=== PATIENT | female | born 1945 | race African-American/Black ===

== ENCOUNTER → 2016-07-24 | Day surgery (SDC) | payer OTHER ==
--- NOTE | 2016-07-23 19:00 | MH ---
cc: CONCEPCIÓN CLEMENT DATE OF ADMISSION: 07/24/2016 ADMITTING DIAGNOSIS: HISTORY OF PRESENT ILLNESS: The patient is a 70 year-old female with chronic otitis media for bilateral myringotomy and tube placement. PAST MEDICAL HISTORY Unremarkable other than rheumatoid arthritis. PAST SURGICAL HISTORY: Notable for previous tubes and nasal surgery. MEDICATIONS: Methotrexate. REVIEW OF SYSTEMS, FAMILY HISTORY AND SOCIAL HISTORY Unremarkable PHYSICAL EXAMINATION Well-appearing patient, no acute distress noted. HEENT: Exam reveals significant fluid behind each eardrum with a retained tube in the external canal on the right side. Nose is clear. Oral cavity and neck are clear. Lungs: Clear. Heart: Regular rate and rhythm. Abdomen: Soft and nontender. Extremities: Without cyanosis, clubbing or edema. Neurologically, nonfocal, alert, oriented x3 IMPRESSION Patient with chronic otitis media for bilateral myringotomy and tube placement. PLAN: The patient was instructed as to the method of surgery and possible complication which include anesthetic complications cardiac difficulty, pulmonary difficulty, stroke, coma or even . Surgical complications of bleeding, infection, early or late extrusion of tube, tympanic membrane perforation, conductive or sensorineural hearing loss. The patient appeared to agree, accept and understand the above-mentioned risks and benefits. Will therefore proceed with surgery. Concepción Clement MD [facility] /6:16 PM /6:54 PM
[~2016-07-24] VITALS: Ht 157.5 cm; Wt 79.2 kg
[~2016-07-24] MED LIST: ACETAMINOPHEN/HYDROcodone 325 MG/7.5 MG TAB PO PRN; AMLO5TAB2 PO; DO NOT ADM ANY ANTICOAGULANT DRUGS XX PRN; EPINEPHrine HCL (1:1000) 30 MG/30 ML VIAL ONE; FERR1TAB36 PO; INSULIN HUMAN REGULAR 1,000 UNITS/10 ML VIAL SQ PRN; LACTATED RINGER'S 1000 ML IV SCH; LIDOCAINE 1%/EPINEPHrine 1:100,000 SOLN 30 ML VIAL ONE; METF1000 PO; METOPROLOL TARTRATE 25 MG TAB PO PRN; MORPHINE SULFATE 4 MG/ML INJ IV PUSH PRN; OFLOXACIN 0.3% OPTH SOLN 5 ML BTL EACH EAR ONE; OFLOXACIN 0.3% OPTH SOLN 5 ML BTL ONE; ONDANSETRON HCL 4 MG/2 ML VIAL IV PUSH ONE; ONDANSETRON HCL 4 MG/2 ML VIAL IV PUSH PRN; PHENYLEPH/NS 1000 MCG/10 ML SYR IV ONE; PRAV10TA PO; PROB500T8 PO; PROPOFOL 200 MG/20 ML AMP IV ONE; SODIUM CHLORID 0.9% 500 ML IV SCH
[2016-07-24 08:06] VITALS: BP 122/72; PULSE 90; RESP 20; TEMP 98.5; O2SAT 96
[2016-07-24 12:40] VITALS: BP 133/83; PULSE 74; RESP 18; TEMP 97.7; O2SAT 99
--- NOTE | 2016-07-24 19:03 | EKG ---
Date Performed: 07/24/2016 Time Performed: 08:11:25 PTAGE: 70 years EKG: Sinus rhythm INDETERMINATE AXIS RIGHT BUNDLE BRANCH BLOCK MODERATE T-WAVE ABNORMALITY, CONSIDER LATERAL ISCHEMIA ABNORMAL ECG PREVIOUS TRACING : 02/25/2012 11.50 Compared to the previous tracing, lateral T wave changes a re new DOCTOR: John Johnson Interpretating Date/Time 07/24/2016 19:01:08
--- NOTE | 2016-07-25 10:44 | MP ---
cc: CONCEPCIÓN CLEMENT DATE OF SURGERY: 07/24/2016 PREOPERATIVE DIAGNOSIS Chronic otitis media. POSTOPERATIVE DIAGNOSIS Chronic otitis media. PROCEDURE Bilateral myringotomy and tube placement. OPERATING SURGEON Dr. Clement ANESTHESIA General. ESTIMATED BLOOD LOSS Minimal. COMPLICATIONS No complications. OPERATION Under microscopic visualization anterior inferior radial myringotomy incision made left side. Fluid suctioned from middle ear cavity. Tympanostomy tube placed in good position along with ofloxacin. In a similar fashion on the opposite side anterior inferior radial myringotomy incision made, fluid suctioned from middle ear cavity, tympanostomy tube placed in good position along with ofloxacin. Patient tolerated procedure well. MD RAUL Paige/ROSA MARIA /7:46 AM /10:32 AM
== END | disposition home or self-care (01) ==
LOC: HSDC 06:59
PROVIDERS: ATTEND Specialist
DX: H66.93 Otitis media, unspecified, bilateral (principal); M06.9 Rheumatoid arthritis, unspecified; R94.31 Abnormal electrocardiogram [ECG] [EKG]
CPT/HCPCS: 00126; 69436; 93005; J2370; J2405; J3010; J0171

== ENCOUNTER 2018-03-31 09:43 | Observation (INO) ==
[2018-03-31 10:40] LABS: Baso % (Auto) 0.3 % (0.0-2.0); Eos # (Auto) 0.1 th/mm3 (0.0-0.4); Eos % (Auto) 0.5 % (0.0-4.0); Hematocrit 38.5 % (35.0-46.0); Hemoglobin 12.5 gm/dL (11.6-15.3); Lymph # (Auto) 1.8 th/mm3 (1.0-4.8); Lymph % (Auto) 9.9 % (9.0-44.0); Mean Corpuscular HGB Conc 32.4 % (32.0-36.0); Mean Corpuscular Hemoglobin 26.2 pg (27.0-34.0); Mean Corpuscular Volume 80.7 fL (80.0-100.0); Mean Platelet Volume 7.4 fL (7.0-11.0); Mono # (Auto) 1.6 th/mm3 (0.0-0.9); Mono % (Auto) 8.8 % (0.0-8.0); Neut # (Auto) 14.4 th/mm3 (1.8-7.7); Neut % (Auto) 80.5 % (16.0-70.0); Platelet Count 367 th/mm3 (150-450); Red Blood Count 4.77 mil/mm3 (4.00-5.30); Red Cell Distribution Width 18.5 % (11.6-17.2); White Blood Count 17.9 th/mm3 (4.0-11.0)
[2018-03-31 10:55] LABS: Albumin 2.9 g/dL (3.4-5.0); Anion Gap 12 meq/L (5-15); Aspartate Aminotransferase 83 U/L (15-37); Blood Urea Nitrogen 18 mg/dL (7-18); Calcium 8.3 mg/dL (8.5-10.1); Carbon Dioxide 25.8 meq/L (21.0-32.0); Chloride 103 meq/L (98-107); Glomerular Filtration Rate 28 mL/min (>89); Glucose,Random 168 mg/dL (74-106); Potassium 3.5 meq/L (3.5-5.1); Sodium 141 meq/L (136-145)
[2018-03-31 10:56] LABS: Alanine Aminotransferase 50 U/L (10-53)
[2018-03-31 10:58] LABS: Alkaline Phosphatase 146 U/L (45-117); Total Protein 7.2 g/dL (6.4-8.2)
--- NOTE | 2018-03-31 11:18 | CT ---
EXAM DATE: 03/31/2018 11:12 AM EDT AGE/SEX: 72 years / Female INDICATIONS: Right ear infection, facial swelling after antibiotics started CLINICAL DATA: This is the patient's initial encounter. Patient reports that signs and symptoms have been present for 1 day and indicates a pain score of 3/10. MEDICAL/SURGICAL HISTORY: Diabetes. None. RADIATION DOSE: 56.35 CTDI (mGy) COMPARISON: [facility] [place], CT SINUSES W/O CONTRAST, 02/18/2012. . TECHNIQUE: CT of the head without contrast. Using automated exposure control and adjustment of the mA and/or kV according to patient size, radiation dose was kept as low as reasonably achievable to ob tain optimal diagnostic quality images. DICOM format image data is available electronically for revi ew and comparison. FINDINGS: Cerebrum: The ventricles are normal for age with mild to moderate atrophic change with sulcal and ve ntricular prominence. Periventricular white matter lucencies are noted consistent with chronic small vessel ischemic change. No evidence of midline shift, mass lesion, hemorrhage or acute infarction. N o extraaxial fluid collections are seen. Posterior Fossa: The cerebellum and brainstem are intact. The 4th ventricle is midline. The cerebe llopontine angle is unremarkable. Extracranial: The visualized portion of the orbits is intact. The paranasal sinuses are nearly compl etely opacified with only minimal aeration in the right maxillary sinus. The mastoid air cells are co mpletely opacified bilaterally. Skull: The calvaria is intact. No evidence of skull fracture. CONCLUSION: 1. Complete opacification of the mastoid air cells bilaterally. 2. Near complete opacification of the paranasal sinuses bilaterally. 3. No evidence of hemorrhage or mass effect. 4. Atrophy and chronic small vessel ischemic change. . Electronically signed by: Justin Benitez MD 03/31/2018 11:17 AM EDT
[2018-03-31] MEDS ORDERED: Famotidine PF Inj 20 MG/2 ML Vial IV.PUSH ONE (11:39)
[2018-03-31] MEDS ORDERED: Vancomycin Inj 1 GM/200 ML PIGGYBACK IV.SIG ONE (11:39)
[2018-03-31] MEDS ORDERED: MethylPREDNISolone Sod Succinate Inj 125 MG/2 ML Vial IV.PUSH ONE (11:39)
[2018-03-31] MEDS ORDERED: Vancomycin Inj 1,000 MG in Sodium Chlor 0.9% Inj 250 ML IV.SIG ONE (12:00)
--- NOTE | 2018-03-31 12:10 | XR ---
EXAM DATE: 03/31/2018 12:03 PM EDT AGE/SEX: 72 years / Female INDICATIONS: Right knee pain after fall. CLINICAL DATA: This is the patient's initial encounter. Patient reports that signs and symptoms have been present for 2 days and indicates a pain score of 9/10. MEDICAL/SURGICAL HISTORY: None. None. COMPARISON: [facility], XR KNEE COMPLETE, RIGHT, 11/30/2017. . FINDINGS: There are degenerative changes patellofemoral compartment. There is minimal articular cartilage calci fication present in the medial compartment as well as the lateral compartment. Alignment anatomic. Fractures are appreciated. CONCLUSION: Degenerative changes, negative for fracture or pathological joint effusion. Electronically signed by: Ben Eddy MD 03/31/2018 12:08 PM EDT
--- NOTE | 2018-03-31 12:11 | XR ---
EXAM DATE: 03/31/2018 12:02 PM EDT AGE/SEX: 72 years / Female INDICATIONS: Left hip pain after fall. CLINICAL DATA: This is the patient's initial encounter. Patient reports that signs and symptoms have been present for 2 days and indicates a pain score of 10/10. MEDICAL/SURGICAL HISTORY: None. None. COMPARISON: No prior exams available for comparison. FINDINGS: Bony structures are intact and in normal alignment. Joints are intact without dislocation or signifi cant arthropathy. Osseous density is normal. Soft tissues are unremarkable. No radiopaque foreign bodies seen. CONCLUSION: Limited exam, negative Electronically signed by: Ben Eddy MD 03/31/2018 12:10 PM EDT
[2018-03-31] MEDS ORDERED: Acetaminophen 325 MG Tablet PO PRN (12:15)
--- NOTE | 2018-03-31 12:17 | ED ---
HPI General Chief complaint: Ear Stated complaint: possible allergic reaction Time Seen by Provider: 03/31/18 10:20 History of Present Illness HPI Narrative: Patient reportedly has a positive urine culture that grew out MRSA about 1-1/2 weeks ago. She was started on clindamycin on Thursday but she is allergic to clindamycin. She is complaining of itchy rash, right ear pain, facial swelling on the right. She denies headache or nausea vomiting or visual change. Family states that she fell last night and complaining of right knee pain. Related Data Home Medications Medication Instructions Recorded Confirmed allopurinol 100 mg PO DAILY 03/31/18 03/31/18 gabapentin 300 mg PO DAILY 03/31/18 03/31/18 glipizide mg PO DAILY 03/31/18 metformin mg PO DAILY 03/31/18 metoprolol tartrate 50 mg PO BID 03/31/18 03/31/18 montelukast 10 mg PO QPM 03/31/18 03/31/18 pravastatin 10 mg PO DAILY 03/31/18 03/31/18 tobramycin-dexamethasone 4 drp OPHTHALMIC (EYE) BID 03/31/18 03/31/18 Allergies Allergy/AdvReac Type Severity Reaction Status Date / Time clindamycin Allergy Severe Hives Verified 03/31/18 10:09 Review of Systems ROS: all other systems reviewed are negative [facility] Medical History Medical History Diabetes (Acute) Cosby-Stickler syndrome (Acute) Surgical History Surgical History H/O parathyroidectomy (Acute) History of carpal tunnel surgery (Acute) History of tubal ligation (Acute) Family History Family History Other Diabetes Social History Social History Substance History: No History of Abuse Smoking Status: Never smoker How Often Do You Have a Drink Containing Alcohol: 2 to 3 times a week Recent Travel in [facility] within the Last 8 Weeks: No Recent Out of Country Travel within the Last 8 Weeks: No Immunization History Tetanus Immunization: Unsure Exam Narrative Exam Narrative: GENERAL: No acute distress. SKIN: Erythematous groin and abdomen area HEAD: Atraumatic. Normocephalic. Right facial swelling EYES: Pupils equal and round. No scleral icterus. No injection or drainage. Her ocular muscles intact bilaterally. ENT: No nasal bleeding or discharge. Mucous membranes pink and moist. Positive pus and right ear. NECK: Trachea midline. No JVD. CARDIOVASCULAR: Regular rate and rhythm. No murmur appreciated. RESPIRATORY: No accessory muscle use. Clear to auscultation. Breath sounds equal bilaterally. GASTROINTESTINAL: Abdomen soft, non-tender, nondistended. Hepatic and splenic margins not palpable. MUSCULOSKELETAL: No obvious deformities. No clubbing. No cyanosis. No edema. Right knee tender to palpation. NEUROLOGICAL: Awake and alert. No obvious cranial nerve deficits. Motor grossly within normal limits. Normal speech. PSYCHIATRIC: Appropriate mood and affect; insight and judgment normal. Course Initial Documented Vital Signs Temperature 97.9 F 03/31/18 09:45 Pulse Rate 94 H 03/31/18 09:45 Respiratory Rate 18 03/31/18 09:45 Blood Pressure 92/53 L 03/31/18 09:45 Pulse Oximetry 97 03/31/18 09:45 Last Documented Vital Signs Temperature 97.9 F 03/31/18 09:45 Pulse Rate 78 03/31/18 13:13 Respiratory Rate 18 03/31/18 13:13 Blood Pressure 129/65 03/31/18 13:13 Pulse Oximetry 99 03/31/18 13:13 Medical Decision Making MDM Narrative Medical decision making narrative: Patient presents to the emergency department complaining of allergic reaction to clindamycin secondary to right ear infection right facial swelling. Patient placed on trim mounter, continuous pulse ox, and IV access obtained. Patient given 1 g IV vancomycin, 125 mg IV methylprednisolone, Benadryl 25 mg p.o., and Pepcid [address] with mastoids, x-ray of right knee, AP pelvis, left hip x-ray, and labs ordered. Blood cultures pending. 1216: Patient patient has been admitted to the hospitalist. Medical Screen Exam Complete: Yes Emergency Medical Condition: Yes Lab Data Result diagrams: 03/31/18 10:15 03/31/18 10:15 Lab Results 03/31/18 03/31/18 Range/Units 10:15 10:15 WBC 17.9 H (4.0-11.0) th/mm3 RBC 4.77 (4.00-5.30) mil/mm3 Hgb 12.5 (11.6-15.3) gm/dL Hct 38.5 (35.0-46.0) % MCV 80.7 (80.0-100.0) fL MCH 26.2 L (27.0-34.0) pg MCHC 32.4 (32.0-36.0) % RDW 18.5 H (11.6-17.2) % Plt Count 367 (150-450) th/mm3 MPV 7.4 (7.0-11.0) fL Neut % (Auto) 80.5 H (16.0-70.0) % Lymph % (Auto) 9.9 (9.0-44.0) % [place] % (Auto) 8.8 H (0.0-8.0) % Eos % (Auto) 0.5 (0.0-4.0) % Baso % (Auto) 0.3 (0.0-2.0) % Neut # (Auto) 14.4 H (1.8-7.7) th/mm3 Lymph # (Auto) 1.8 (1.0-4.8) th/mm3 [place] # (Auto) 1.6 H (0.0-0.9) th/mm3 Eos # (Auto) 0.1 (0.0-0.4) th/mm3 Baso # (Auto) 0.0 (0.0-0.2) th/mm3 WBC Differential . Differential Comment Auto diff final Sodium 141 (136-145) meq/L Potassium 3.5 (3.5-5.1) meq/L Chloride 103 (98-107) meq/L Carbon Dioxide 25.8 (21.0-32.0) meq/L Anion Gap 12 (5-15) meq/L BUN 18 (7-18) mg/dL Creatinine 2.08 H (0.50-1.00) mg/dL Estimated GFR 28 L (>89) mL/min Random Glucose 168 H (74-106) mg/dL Calcium 8.3 L (8.5-10.1) mg/dL Total Bilirubin 1.9 H (0.2-1.0) mg/dL AST 83 H (15-37) U/L ALT 50 (10-53) U/L Alkaline Phosphatase 146 H (45-117) U/L Total Protein 7.2 (6.4-8.2) g/dL Albumin 2.9 L (3.4-5.0) g/dL Imaging Data Radiologist's impression: Head CT 10/31/18 10:19 CONCLUSION: 1. Complete opacification of the mastoid air cells bilaterally. 2. Near complete opacification of the paranasal sinuses bilaterally. 3. No evidence of hemorrhage or mass effect. 4. Atrophy and chronic small vessel ischemic change. . Hip X-Ray 03/31/18 11:40 CONCLUSION: Limited exam, negative Knee X-Ray 03/31/18 11:40 CONCLUSION: Degenerative changes, negative for fracture or pathological joint effusion. Discharge Plan Discharge Disposition Patient Disposition: 30 Still Patient Discharge Condition Condition: Stable Discharge Details Diagnosis: Otitis externa Physicians Team ED Provider: Nadia Feldman Attending Provider: Justin Peck Other Providers: Hector Young ; Ke De La Torre Status ED Status: Admitted Patient
[2018-03-31] MEDS ORDERED: Ampicillin/Sulbactam Inj 3 GM in Sodium Chloride 0.9% Inj 100 ML IV.SIG SCH (13:00)
[2018-03-31] MEDS: Heparin - SQ 10,000 UNITS/ML Vial SQ SCH ×2 (13:10→20:25)
[2018-03-31] MEDS: Sod Chloride 0.9% Inj 1,000 ML IV.CONT SCH (13:10)
[2018-03-31] MEDS ORDERED: Vancomycin Consult Pharmacy OTHER PRN (13:29)
[2018-03-31] MEDS ORDERED: Dextrose 50% in Water 50 ML Vial IV.PUSH PRN (13:33)
--- NOTE | 2018-03-31 13:49 | P.HPIM ---
History of Present Illness Primary Care Physician: Cory Pedro Chief Complaint: Right ear pain History of Present Illness: The patient is a 72-year-old female with a past medical history of chronic ear infections and diabetes who is presenting to the hospital with right ear pain and facial swelling. She says that she has had ear problems for the past 5 or 6 years. She said she had bilateral ear tubes placed and they removed the tube from her right ear but she still has one in the left ear. She says she has been following up with her ENT and she said that she had a positive test for MRSA. She says she was started on clindamycin. She has been experiencing right ear pain, right ear itching and facial swelling on the right side of her face. She also had a fall last night where she injured her right knee. She says she is having difficulty ambulating well secondary to the pain. She said she was dizzy prior to the fall. She says she has not been eating that much but she has been drinking plenty of fluids. She says she has minor pain in her left ear. Inpatient Certification: I certify that the inpatient services were ordered in accordance with Medicare regulations governing the order. This includes certification that hospital inpatient services are reasonable and necessary and in the case of services not specified as inpatient-only under 42 CFR 419.22(n), that they are appropriately provided as inpatient services in accordance to with the 2-midnight benchmark under 43 CFR 412.3(e) Estimated Total Length of Stay (Days): 2 Plans for Post Hospital Care: Home Review of Systems All other systems reviewed negative except as stated in HPI [facility] - History History Provided By: Patient, Family Member - Medical History Medical History: Medical History (Last Reviewed 03/31/18 @ 13:38 by Justin Peck DO) Diabetes Cosby-Stickler syndrome - Surgical History Surgical History: Surgical History (Last Updated 03/31/18 @ 13:39 by Justin Peck DO) H/O parathyroidectomy History of carpal tunnel surgery History of tubal ligation - Family History Family History: Family History (Last Updated 03/31/18 @ 13:39 by Justin Peck DO) Other Diabetes - Social History I have reviewed the patient's Social History: Yes - Tobacco History Smoking Status: Never smoker - Alcohol History How Often Do You Have a Drink Containing Alcohol: 2 to 3 times a week - Substance Use History Substance History: No History of Abuse - Travel History Recent Travel in the [place] Within the Last 8 Weeks: No Recent Travel Out of the Country Within the Last 8 Weeks: No - Immunization History Tetanus Immunization: Unsure Medications and Allergies Active Medications: Active Medications Acetaminophen (Tylenol) 650 mg PO Q4H PRN PRN Reason: fever, pain 1-2 Dextrose (D50w Vial) 50 ml IV.PUSH UNSCH PRN PRN Reason: PER HYPOGLYCEMIA PROTOCOL Glucagon (Glucagon Inj) 1 mg OTHER PRN PRN PRN Reason: for Hypoglycemia Protocol Heparin Sodium (Porcine) (Heparin Inj) 5,000 units SQ Q8H [facility] Last Admin: 03/31/18 13:10 Dose: 5,000 units Sodium Chloride (Ns Inj) 1,000 mls @ 100 mls/hr IV.CONT .Q10H [facility] Last Admin: 03/31/18 13:10 Dose: 100 mls/hr Insulin Aspart (Novolog Insulin Correctional Sugar Inj) 0 unit SQ ACHS GUANACO; Protocol Montelukast Sodium (Singulair) 10 mg PO QPM [facility] Pharmacy Profile Note (Vancomycin Consult Pharmacy) 1 each OTHER UNSCH PRN PRN Reason: Pharmacy to dose Pravastatin Sodium (Pravachol) 10 mg PO DAILY [facility] Tobramycin/Dexamethasone (Tobradex Opth Drops) 1 drop EACH EYE BID [facility] Allergies Allergy/AdvReac Type Severity Reaction Status Date / Time clindamycin Allergy Severe Hives Verified 03/31/18 10:09 Home Medications Medication Instructions Recorded Confirmed Type allopurinol 100 mg PO DAILY 03/31/18 03/31/18 History gabapentin 300 mg PO DAILY 03/31/18 03/31/18 History glipizide mg PO DAILY 03/31/18 History metformin mg PO DAILY 03/31/18 History metoprolol tartrate 50 mg PO BID 03/31/18 03/31/18 History montelukast 10 mg PO QPM 03/31/18 03/31/18 History pravastatin 10 mg PO DAILY 03/31/18 03/31/18 History tobramycin-dexamethasone 4 drp OPHTHALMIC (EYE) BID 03/31/18 03/31/18 History Exam Vital signs: Vital Signs 03/31/18 09:45 03/31/18 10:07 03/31/18 12:42 Temperature 97.9 F Pulse Rate 94 H 88 Respiratory Rate 18 21 Blood Pressure 92/53 L 116/69 Pulse Oximetry 97 100 100 03/31/18 13:13 Temperature Pulse Rate 78 Respiratory Rate 18 Blood Pressure 129/65 Pulse Oximetry 99 Intake & Output 03/30/18 03/31/18 03/31/18 18:59 06:59 18:59 Intake Total 250 / 250 Balance 250 / 250 Weight 77.111 kg Intake: IV 250 / 250 Vancomycin Inj 1,000 MG In NS 250 / 250 Inj 250 ML @ 250 mls/hr IV.SIG ONCE ONE Rx#:[id number] Narrative: GENERAL: No acute distress. Hard of hearing. HEAD: Atraumatic. Normocephalic. Right facial swelling EYES: Pupils equal and round. No scleral icterus. No injection or drainage. Her ocular muscles intact bilaterally. ENT: No nasal bleeding or discharge. Mucous membranes pink and moist. Positive pus and edema of the tympanic membrane of right ear. NECK: Trachea midline. No JVD. CARDIOVASCULAR: Regular rate and rhythm. No murmur appreciated. RESPIRATORY: No accessory muscle use. Clear to auscultation. Breath sounds equal bilaterally. GASTROINTESTINAL: Abdomen soft, non-tender, nondistended. Hepatic and splenic margins not palpable. MUSCULOSKELETAL: No obvious deformities. No clubbing. No cyanosis. No edema. Right knee tender to palpation. NEUROLOGICAL: Awake and alert. No obvious cranial nerve deficits. Motor grossly within normal limits. Normal speech. PSYCHIATRIC: Appropriate mood and affect; insight and judgment normal. Results - Labs CBC & Chem 7: 03/31/18 10:15 03/31/18 10:15 Labs: Short CBC 03/31/18 Range/Units 10:15 WBC 17.9 H (4.0-11.0) th/mm3 Hgb 12.5 (11.6-15.3) gm/dL Hct 38.5 (35.0-46.0) % Plt Count 367 (150-450) th/mm3 BMP 03/31/18 10:15 Sodium 141 Potassium 3.5 Chloride 103 Carbon Dioxide 25.8 BUN 18 Creatinine 2.08 H Calcium 8.3 L Liver Function 03/31/18 Range/Units 10:15 Total Bilirubin 1.9 H (0.2-1.0) mg/dL AST 83 H (15-37) U/L ALT 50 (10-53) U/L Alkaline Phosphatase 146 H (45-117) U/L Albumin 2.9 L (3.4-5.0) g/dL - Imaging Impressions Head CT 03/31/18 10:19 CONCLUSION: 1. Complete opacification of the mastoid air cells bilaterally. 2. Near complete opacification of the paranasal sinuses bilaterally. 3. No evidence of hemorrhage or mass effect. 4. Atrophy and chronic small vessel ischemic change. . Hip X-Ray 03/31/18 11:40 CONCLUSION: Limited exam, negative Knee X-Ray 03/31/18 11:40 CONCLUSION: Degenerative changes, negative for fracture or pathological joint effusion. Caprini VTE Risk Assessment Caprini VTE Risk Assessment: Moderate/High Risk (score >= 2) Caprini Risk Assessment Model: Point Value = 1 Point Value = 2 Point Value = 3 Point Value = 5 Age 41-60 Minor surgery BMI > 25 kg/m2 Swollen legs Varicose veins or History of unexplained or recurrent spontaneous Oral contraceptives or hormone replacement Sepsis (< 1 month) Serious lung disease, including pneumonia (< 1 month) Abnormal pulmonary function Acute myocardial infarction Congestive heart failure (< 1 month) History of inflammatory bowel disease Medical patient at bed rest Age 61-74 Arthroscopic surgery Major open surgery (> 45 min) Laparoscopic surgery (> 45 min) Malignancy Confined to bed (> 72 hours) Immobilizing plaster cast Central venous access Age >= 75 History of VTE Family history of VTE Factor V Leiden Prothrombin [id number] Lupus anticoagulant Anticardiolipin antibodies Elevated serum homocysteine Heparin-induced thrombocytopenia Other congenital or acquired thrombophilia Stroke (< 1 month) Elective arthroplasty Hip, pelvis, or leg fracture Acute spinal cord injury (< 1 month) Prophylaxis Regimen: Total Risk Factor Score Risk Level Prophylaxis Regimen 0-1 Low Early ambulation 2 Moderate Order ONE of the following: *Sequential Compression Device (SCD) *Heparin 5000 units SQ BID 3-4 Higher Order ONE of the following medications: *Heparin 5000 units SQ TID *Enoxaparin/Lovenox 40 mg SQ daily (WT < 150 kg, CrCl > 30 mL/min) *Enoxaparin/Lovenox 30 mg SQ daily (WT < 150 kg, CrCl > 10-29 mL/min) *Enoxaparin/Lovenox 30 mg SQ BID (WT < 150 kg, CrCl > 30 mL/min) AND/OR *Sequential Compression Device (SCD) 5 or more Highest Order ONE of the following medications: *Heparin 5000 units SQ TID (Preferred with Epidurals) *Enoxaparin/Lovenox 40 mg SQ daily (WT < 150 kg, CrCl > 30 mL/min) *Enoxaparin/Lovenox 30 mg SQ daily (WT < 150 kg, CrCl > 10-29 mL/min) *Enoxaparin/Lovenox 30 mg SQ BID (WT < 150 kg, CrCl > 30 mL/min) AND *Sequential Compression Device (SCD) Assessment and Plan - Plan Acute mastoiditis/ Sepsis The patient is followed by ENT as an outpatient. She was recently started on clindamycin for a MRSA infection, however, the patient is allergic to clindamycin. CT in the ED showed: Complete opacification of the mastoid air cells bilaterally; Near complete opacification of the paranasal sinuses bilaterally; No evidence of hemorrhage or mass effect. -continue IV vancomycin. -ENT consult requested. The pt follows with Dr. Cardoso. -culture pus from right ear, follow wound cultures. -pain control as needed. Acute renal failure The pt received clindamycin recently event though she is allergic to it, so that might be contributing. -IVFs. -avoid nephrotoxins and follow BMP. Leukocytosis/ Hypotension S/t infection. -treatment as above. -hold antihypertensives. Diabetes On PO meds as an outpt. -hold PO regimen. -insulin sliding scale. -Levemir 15 units HS. PPx: Heparin
[2018-03-31] MEDS: Insulin NovoLOG Aspart Correctional Sugar Inj SQ SCH ×2 (17:15→21:58)
[2018-03-31] MEDS: Montelukast 10 MG Tablet PO SCH (17:23)
[2018-03-31] MEDS: Insulin Detemir Inj 1,000 UNIT/10 ML Vial SQ SCH (21:58)
[2018-03-31] MEDS: Tobramycin/Dexamethasone Opth Drops 5 ML Bottle EACH EYE SCH (22:05)
[2018-04-01] MEDS: Sod Chloride 0.9% Inj 1,000 ML IV.CONT SCH ×2 (02:42→13:33)
[2018-04-01] MEDS: Heparin - SQ 10,000 UNITS/ML Vial SQ SCH ×3 (05:29→21:25)
[2018-04-01 06:55] LABS: Baso % (Auto) 0.1 % (0.0-2.0); Hematocrit 33.8 % (35.0-46.0); Lymph # (Auto) 1.1 th/mm3 (1.0-4.8); Lymph % (Auto) 6.1 % (9.0-44.0); Mean Corpuscular HGB Conc 32.5 % (32.0-36.0); Mean Corpuscular Volume 80.1 fL (80.0-100.0); Mean Platelet Volume 7.7 fL (7.0-11.0); Mono # (Auto) 0.7 th/mm3 (0.0-0.9); Mono % (Auto) 3.6 % (0.0-8.0); Neut # (Auto) 16.7 th/mm3 (1.8-7.7); Neut % (Auto) 90.2 % (16.0-70.0); Platelet Count 317 th/mm3 (150-450); Red Blood Count 4.22 mil/mm3 (4.00-5.30); Red Cell Distribution Width 18.8 % (11.6-17.2); White Blood Count 18.5 th/mm3 (4.0-11.0)
[2018-04-01 07:20] LABS: Albumin 2.8 g/dL (3.4-5.0); Anion Gap 14 meq/L (5-15); Aspartate Aminotransferase 60 U/L (15-37); Blood Urea Nitrogen 20 mg/dL (7-18); Calcium 8.1 mg/dL (8.5-10.1); Carbon Dioxide 22.4 meq/L (21.0-32.0); Chloride 106 meq/L (98-107); Glomerular Filtration Rate 39 mL/min (>89); Glucose,Random 169 mg/dL (74-106); Potassium 3.3 meq/L (3.5-5.1); Sodium 142 meq/L (136-145)
[2018-04-01 07:22] LABS: Alanine Aminotransferase 44 U/L (10-53)
[2018-04-01 07:24] LABS: Alkaline Phosphatase 126 U/L (45-117); Total Protein 7.1 g/dL (6.4-8.2); Vancomycin,Random 8.3 Comment
[2018-04-01] MEDS: Tobramycin/Dexamethasone Opth Drops 5 ML Bottle EACH EYE SCH ×2 (08:51→21:25)
[2018-04-01] MEDS: Insulin NovoLOG Aspart Correctional Sugar Inj SQ SCH ×4 (08:59→22:21)
[2018-04-01] MEDS ORDERED: Vancomycin Inj 1,250 MG in Sodium Chlor 0.9% Inj 250 ML IV.SIG SCH (12:00)
--- NOTE | 2018-04-01 13:10 | P.CONID ---
History of Present Illness Service: Infectious Disease Consult date: 04/01/18 Requesting Physician: Justin Cardoso Reason for Consult: Evaluation and Mment of Otitis externa possible media Primary Care Provider: Cory Pedro Chief Complaint: Right ear pain History of Present Illness: The patient is a 72-year-old female with a past medical history of chronic ear infections and diabetes who is presenting to the hospital with right ear pain and facial swelling. She says that she has had ear problems for the past 5 or 6 years. She said she had bilateral ear tubes placed and they removed the tube from her right ear but she still has one in the left ear. She says she has been following up with her ENT and she said that she had a positive test for MRSA. She says she was started on clindamycin. She has been experiencing right ear pain, right ear itching and facial swelling on the right side of her face. She also had a fall last night where she injured her right knee. She says she is having difficulty ambulating well secondary to the pain. She said she was dizzy prior to the fall. She says she has not been eating that much but she has been drinking plenty of fluids. She says she has minor pain in her left ear Review of Systems All other systems reviewed negative except as stated in HPI Eyes: Reports discharge (clear discharge from right eye for many years.) Ears, Nose, Mouth, and Throat: Reports abnormal hearing (wears hearing aid), Reports change in voice (nasal twang to voice per son) Hematologic/Lymphatic: Denies easy bleeding, Denies easy bruising, Denies enlarged lymph nodes, Denies other Allergic/Immunologic: Denies GI upset with certain foods, Denies hives, Denies itchy eyes, Denies lip swelling, Denies seasonal runny nose, Denies throat swelling, Denies tongue swelling, Denies wheezing, Denies other PMFSH - History History Provided By: Patient - Medical History Medical History: Medical History (Last Reviewed 04/01/18 @ 07:55 by Justin Massey) Diabetes Cosby-Stickler syndrome - Surgical History Surgical History: Surgical History (Last Reviewed 04/01/18 @ 07:55 by Justin Massey) H/O parathyroidectomy History of carpal tunnel surgery History of tubal ligation - Family History Family History: Family History (Last Updated 03/31/18 @ 13:39 by Justin Peck DO) Other Diabetes - Tobacco History Second Hand Smoke Exposure: No Smoking Status: Never smoker - Alcohol History How Often Do You Have a Drink Containing Alcohol: 2 to 4 times a month - Substance Use History Substance History: No History of Abuse - Travel History Recent Travel in the [facility] Within the Last 8 Weeks: No Recent Travel Out of the Country Within the Last 8 Weeks: No - Immunization History Tetanus Immunization: >5 Years Hx Influenza Vaccine This Season: No Medications and Allergies Active Medications: Active Medications Acetaminophen (Tylenol) 650 mg PO Q4H PRN PRN Reason: fever, pain 1-2 Dextrose (D50w Vial) 50 ml IV.PUSH UNSCH PRN PRN Reason: PER HYPOGLYCEMIA PROTOCOL Glucagon (Glucagon Inj) 1 mg OTHER PRN PRN PRN Reason: for Hypoglycemia Protocol Heparin Sodium (Porcine) (Heparin Inj) 5,000 units SQ Q8H [facility] Last Admin: 04/01/18 05:29 Dose: 5,000 units Sodium Chloride (Ns Inj) 1,000 mls @ 100 mls/hr IV.CONT .Q10H [facility] Last Infusion: 04/01/18 05:27 Dose: 100 mls/hr Vancomycin HCl 1,250 mg/ (Sodium Chloride) 262.5 mls @ 250 mls/hr IV.SIG Q24H [facility] Insulin Aspart (Novolog Insulin Correctional Sugar Inj) 0 unit SQ ACHS [facility]; Protocol Last Admin: 04/01/18 08:59 Dose: 1 unit Insulin Detemir (Levemir Inj) 15 unit SQ HS [facility] Last Admin: 03/31/18 21:58 Dose: 15 unit Montelukast Sodium (Singulair) 10 mg PO QPM [facility] Last Admin: 03/31/18 17:23 Dose: 10 mg Pharmacy Profile Note (Vancomycin Consult Pharmacy) 1 each OTHER UNSCH PRN PRN Reason: Pharmacy to dose Pravastatin Sodium (Pravachol) 10 mg PO DAILY [facility] Last Admin: 04/01/18 08:50 Dose: 10 mg Tobramycin/Dexamethasone (Tobradex Opth Drops) 1 drop EACH EYE BID [facility] Last Admin: 04/01/18 08:51 Dose: 1 drop Allergies Allergy/AdvReac Type Severity Reaction Status Date / Time clindamycin Allergy Severe Hives Verified 03/31/18 10:09 Home Medications Medication Instructions Recorded Confirmed Type allopurinol 100 mg PO DAILY 03/31/18 03/31/18 History gabapentin 300 mg PO DAILY 03/31/18 03/31/18 History glipizide mg PO DAILY 03/31/18 History metformin mg PO DAILY 03/31/18 History metoprolol tartrate 50 mg PO BID 03/31/18 03/31/18 History montelukast 10 mg PO QPM 03/31/18 03/31/18 History pravastatin 10 mg PO DAILY 03/31/18 03/31/18 History tobramycin-dexamethasone 4 drp OPHTHALMIC (EYE) BID 03/31/18 03/31/18 History Exam Vital signs: Vital Signs 03/31/18 13:13 03/31/18 14:00 03/31/18 16:00 Temperature 97.9 F Pulse Rate 78 76 76 Respiratory Rate 18 16 Blood Pressure 129/65 112/61 Pulse Oximetry 99 97 03/31/18 16:50 03/31/18 17:54 03/31/18 20:00 Temperature 98.0 F Pulse Rate 78 76 82 Respiratory Rate 18 Blood Pressure 127/62 Pulse Oximetry 95 04/01/18 00:00 04/01/18 00:44 04/01/18 04:00 Temperature 97.6 F 97.7 F Pulse Rate 81 77 80 Respiratory Rate 18 18 Blood Pressure 108/53 L 118/60 Pulse Oximetry 95 96 04/01/18 08:00 04/01/18 12:00 Temperature 97.1 F L 96.8 F L Pulse Rate 76 74 Respiratory Rate 18 18 Blood Pressure 114/86 157/62 H Pulse Oximetry 95 95 Intake & Output 03/31/18 04/01/18 04/01/18 18:59 06:59 18:59 Intake Total 250 / 250 1265 / 1265 Balance 250 / 250 1265 / 1265 Weight 77.111 kg 81.7 kg Intake: IV 250 / 250 1265 / 1265 NS Inj 1,000 ML @ 100 mls/hr IV 1265 / 1265 .CONT .Q10H [facility] Rx#:[id number] Vancomycin Inj 1,000 MG In NS 250 / 250 Inj 250 ML @ 250 mls/hr IV.SIG ONCE ONE Rx#:[id number] Other: # Voids 3 # Bowel Movements 1 Weight On Admission 77.111 kg Narrative: GENERAL: Well-nourished well-developed, not in acute distress SKIN: Rash on her face, bilateral UE and abdomen despite being dark skinned. No rash on bilateral LE. HEAD: Atraumatic. Normocephalic. No temporal or scalp tenderness. EYES: Pupils equal round and reactive. Scleral icterus. No injection or drainage. No petechia ENT: Flattened nasal bridge with nasal twang. NECK: Trachea midline. Supple, nontender, no meningeal signs. CARDIOVASCULAR: HS audible. RESPIRATORY: Clear to auscultation bilaterally. GASTROINTESTINAL: Abdomen soft nontender. MUSCULOSKELETAL: Extremities without clubbing, cyanosis. NEUROLOGICAL: Alert oriented 3. Nonfocal. Psych cooperative IV line sites ok. Results - Labs CBC & Chem 7: 04/01/18 04:45 04/01/18 04:45 Labs: Laboratory Results - last 24 hr 03/31/18 03/31/18 04/01/18 16:34 21:50 04:45 WBC 18.5 H RBC 4.22 Hgb 11.0 L Hct 33.8 L MCV 80.1 MCH 26.0 L MCHC 32.5 RDW 18.8 H Plt Count 317 MPV 7.7 Neut % (Auto) 90.2 H Lymph % (Auto) 6.1 L [place] % (Auto) 3.6 Eos % (Auto) 0.0 Baso % (Auto) 0.1 Neut # (Auto) 16.7 H Lymph # (Auto) 1.1 [place] # (Auto) 0.7 Eos # (Auto) 0.0 Baso # (Auto) 0.0 WBC Differential . Differential Comment Auto diff final Sodium Potassium Chloride Carbon Dioxide Anion Gap BUN Creatinine Estimated GFR POC Glucose 177 H 240 H Random Glucose Calcium Total Bilirubin AST ALT Alkaline Phosphatase Total Protein Albumin Random Vancomycin 04/01/18 04/01/18 04/01/18 04:45 08:42 12:17 WBC RBC Hgb Hct MCV MCH MCHC RDW Plt Count MPV Neut % (Auto) Lymph % (Auto) [place] % (Auto) Eos % (Auto) Baso % (Auto) Neut # (Auto) Lymph # (Auto) [place] # (Auto) Eos # (Auto) Baso # (Auto) WBC Differential Differential Comment Sodium 142 Potassium 3.3 L Chloride 106 Carbon Dioxide 22.4 Anion Gap 14 BUN 20 H Creatinine 1.59 H Estimated GFR 39 L POC Glucose 166 H 170 H Random Glucose 169 H Calcium 8.1 L Total Bilirubin 0.9 AST 60 H ALT 44 Alkaline Phosphatase 126 H Total Protein 7.1 Albumin 2.8 L Random Vancomycin 8.3 - Imaging Head CT 03/31/18 10:19 CONCLUSION: 1. Complete opacification of the mastoid air cells bilaterally. 2. Near complete opacification of the paranasal sinuses bilaterally. 3. No evidence of hemorrhage or mass effect. 4. Atrophy and chronic small vessel ischemic change. . Hip X-Ray 03/31/18 11:40 CONCLUSION: Limited exam, negative Knee X-Ray 03/31/18 11:40 CONCLUSION: Degenerative changes, negative for fracture or pathological joint effusion. Assessment and Plan - Plan Otitis Externa possible media Mastoiditis bilaterally on CT H/o Cosby-Stickler syndrome. Has not seen an opthalmologist for few years. Addressed importance. H/o recurrent ear infections particularly right ear. H/o Right ear tube now removed. H/o Left ear tube placement Acute renal failure: baseline not known. Leucocytosis: likely infection related. New Rash: likely drug induced possibly Clindamycin prior to admission as rash started before hospitalization. Recs: Discontinue Vanco IV due to Acute renal failure at least till we sort out if this is acute or chronic or both as Vanco can be nephrotoxic Start Zyvox IV for now. If treatment needed beyond 2 weeks then zyvox will have to be changed as well. Zyvox would be a good option if treatment expected to be less than 2 weeks. Zyvox beyond 2 weeks the risk of neuropathy and BM toxicity increases. Monitor platelets. Follow CBC BMP in am. Left Message with Paige at office as I would like to discuss case with . PICC line cannot be placed as WBC high and blood cultures pending plus a decision about length will determine if PICC line needed in first place. Follow cultures if any gram negatives coverage may need broadening. Atif Berman: Cosby Stickler syndrome affects eye and patient has not seen Opthalm in many years. Pt son in room both patient and son made aware to follow up with [facility]. Follow cultures Follow clinical course. Not ready for discharge. No PICC till cleared by ID. atif RN Addendum: atif Cazares he sent patient to hospital for chronic otitis media who has failed outpatient oral antibiotics. Zyvox has not been tried as outpatient so far. At the present time would like to treat this infection with prolonged antibiotics. I dw him that due to Acute renal failure Vanco IV would not be a good choice and that I will dw patients PCP about baseline Cr and other diagnosis.
--- NOTE | 2018-04-01 15:05 | P.PN ---
Subjective Interval history: seen with family at bedside awake and alert hard of hearing left ear chronic ringing sensation in both ears states baseline uses a walker lately some draining on the left ear complains of feeling soreness of the oral mucosa having difficulty swallowing check oral mucos- no canker sores, no thrush PCP- Dr. Sánchez- joel meyer and CM Physical Exam Vital signs: Vital Signs 03/31/18 16:00 03/31/18 16:50 03/31/18 17:54 Temperature 97.9 F Pulse Rate 76 78 76 Respiratory Rate 16 Blood Pressure 112/61 Pulse Oximetry 97 03/31/18 20:00 04/01/18 00:00 04/01/18 00:44 Temperature 98.0 F 97.6 F Pulse Rate 82 81 77 Respiratory Rate 18 18 Blood Pressure 127/62 108/53 L Pulse Oximetry 95 95 04/01/18 04:00 04/01/18 08:00 04/01/18 12:00 Temperature 97.7 F 97.1 F L 96.8 F L Pulse Rate 80 76 74 Respiratory Rate 18 18 18 Blood Pressure 118/60 114/86 157/62 H Pulse Oximetry 96 95 95 Intake & Output 03/31/18 04/01/18 04/01/18 18:59 06:59 18:59 Intake Total 250 / 250 1265 / 1265 1000 / 1000 Balance 250 / 250 1265 / 1265 1000 / 1000 Weight 77.111 kg 81.7 kg Intake: IV 250 / 250 1265 / 1265 1000 / 1000 NS Inj 1,000 ML @ 100 mls/hr IV 1265 / 1265 1000 / 1000 .CONT .Q10H [facility] Rx#:[id number] Vancomycin Inj 1,000 MG In NS 250 / 250 Inj 250 ML @ 250 mls/hr IV.SIG ONCE ONE Rx#:[id number] Other: # Voids 3 # Bowel Movements 1 Weight On Admission 77.111 kg Narrative: GENERAL: Well-nourished well-developed, not in acute distress HEAD: Atraumatic. Normocephalic. No temporal or scalp tenderness. EYES: Pupils equal round and reactive. Scleral icterus. otosocopy: no tragal tenderness NECK: Trachea midline. Supple, nontender, no meningeal signs. CARDIOVASCULAR: HS audible. RESPIRATORY: Clear to auscultation bilaterally. GASTROINTESTINAL: Abdomen soft nontender. MUSCULOSKELETAL: Extremities without clubbing, cyanosis. NEUROLOGICAL: Alert oriented 3. Nonfocal. Psych cooperative skin- some erythema of the face, dorearms, and back - Results - Labs CBC & Chem 7: 04/01/18 04:45 04/01/18 04:45 Laboratory Results - last 24 hr 03/31/18 03/31/18 04/01/18 16:34 21:50 04:45 WBC 18.5 H RBC 4.22 Hgb 11.0 L Hct 33.8 L MCV 80.1 MCH 26.0 L MCHC 32.5 RDW 18.8 H Plt Count 317 MPV 7.7 Neut % (Auto) 90.2 H Lymph % (Auto) 6.1 L [place] % (Auto) 3.6 Eos % (Auto) 0.0 Baso % (Auto) 0.1 Neut # (Auto) 16.7 H Lymph # (Auto) 1.1 [place] # (Auto) 0.7 Eos # (Auto) 0.0 Baso # (Auto) 0.0 WBC Differential . Differential Comment Auto diff final Sodium Potassium Chloride Carbon Dioxide Anion Gap BUN Creatinine Estimated GFR POC Glucose 177 H 240 H Random Glucose Calcium Total Bilirubin AST ALT Alkaline Phosphatase Total Protein Albumin Random Vancomycin 04/01/18 04/01/18 04/01/18 04:45 08:42 12:17 WBC RBC Hgb Hct MCV MCH MCHC RDW Plt Count MPV Neut % (Auto) Lymph % (Auto) [place] % (Auto) Eos % (Auto) Baso % (Auto) Neut # (Auto) Lymph # (Auto) [place] # (Auto) Eos # (Auto) Baso # (Auto) WBC Differential Differential Comment Sodium 142 Potassium 3.3 L Chloride 106 Carbon Dioxide 22.4 Anion Gap 14 BUN 20 H Creatinine 1.59 H Estimated GFR 39 L POC Glucose 166 H 170 H Random Glucose 169 H Calcium 8.1 L Total Bilirubin 0.9 AST 60 H ALT 44 Alkaline Phosphatase 126 H Total Protein 7.1 Albumin 2.8 L Random Vancomycin 8.3 Microbiology 03/31/18 10:10 Blood - Peripheral Aerobic Blood Culture - Preliminary No growth in 1 day 03/31/18 10:10 Blood - Peripheral Anaerobic Blood Culture - Preliminary No growth in 1 day 03/31/18 10:15 Blood - Peripheral Aerobic Blood Culture - Preliminary No growth in 1 day 03/31/18 10:15 Blood - Peripheral Anaerobic Blood Culture - Preliminary No growth in 1 day 03/31/18 22:15 Ear - Right Gram Stain - Final Assessment and Plan - Plan 72 years old Otitis Externa possible media AD Mastoiditis bilaterally on CT H/o recurrent ear infections particularly right ear. H/o Right ear tube now removed. H/o Left ear myringotomy tube placement - sent here by ENT - ID ff- started on IV zyvox. Vancomycin DC due to HANNAH - Discontinue Vanco IV due to Acute renal failure at least till we sort out if this is acute or chronic or both as Vanco can be nephrotoxic -Monitor platelet cts , CBC, BMP, ff cultures - not cleared for PICC line due to leukocytosis Start Zyvox IV for now. If treatment needed beyond 2 weeks then zyvox will have to be changed as well. Zyvox would be a good option if treatment expected to be less than 2 weeks. Zyvox beyond 2 weeks the risk of neuropathy and BM toxicity increases. Acute KI- creatinine trending down - ff BMP -IVFs. -avoid nephrotoxins and follow BMP. History of hypertesnion - mnitor- off BP meds- low BP on admission H/o Cosby-Stickler syndrome. - OP ff up with an label cutter New Rash: likely drug induced possibly Clindamycin prior to admission as rash started before hospitalization. Pain on swallowing- no sores of the mouth, no oral ulcer - get speecht herapy swallwoing - recieved IV soluemdrol 03/31 - start Solumedrol 40 mg q 12 Diabetes On PO meds as an outpt. -hold PO regimen. -insulin sliding scale. -Levemir 15 units HS. Speech therapy consult- complains of difficulty swallowing- lungs- clear on exam PPx: Heparin
[2018-04-01] MEDS ORDERED: Potassium Chloride 25 MEQ Effervescent Tablet PO ONE (16:20)
[2018-04-01] MEDS: MethylPREDNISolone Sod Succinate Inj 40 MG/ML Vial IV.PUSH SCH ×2 (17:44→21:25)
--- NOTE | 2018-04-01 17:49 | P.CODE44 ---
Code 44 - Inpatient to Obs - Code 44 - Inpatient to Obs Statement: A clinical review of the case has been conducted by a member of the Utilization Review Committee. The findings indicate the patient meets criteria for observation status. The information and decision has been discussed with the attending physician Faisal Bearden MD and physician provider Beau Montero MD.
[2018-04-01] MEDS: Montelukast 10 MG Tablet PO SCH (18:44)
[2018-04-01] MEDS: Insulin Detemir Inj 1,000 UNIT/10 ML Vial SQ SCH (22:22)
--- NOTE | 2018-04-01 23:02 | MB ---
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 Imaging studies shows mastoid fluid, fluid in the sinuses without coalescence. PHYSICAL EXAMINATION: GENERAL: A well-appearing patient in no acute distress. HEENT: Both ears have significant otorrhea with large amounts of purulent material in the canals. Both ears have perforations. Nasal cavity reveals bilateral crusting with a large septal perforation. Oral cavity and the neck are clear. IMPRESSION: Chronic otitis, chronic sinusitis, methicillin-resistant Staphylococcus aureus positive. Recommend infectious disease consult and PICC line insertion for home IV therapy to eradicate methicillin-resistant Staphylococcus aureus in ears and likely sinuses. No surgical indication at this time. MD RAUL Paige/cady , 10:24 AM , 10:30 AM
[2018-04-02] MEDS: Heparin - SQ 10,000 UNITS/ML Vial SQ SCH ×2 (04:55→13:17)
[2018-04-02] MEDS ORDERED: Influenza (Quadrivalent) Vaccine 0.5 ML Syringe IM ONE (09:00)
[2018-04-02 09:28] LABS: Baso # (Auto) 0.1 th/mm3 (0.0-0.2); Baso % (Auto) 0.4 % (0.0-2.0); Eos % (Auto) 0.1 % (0.0-4.0); Hematocrit 34.6 % (35.0-46.0); Hemoglobin 11.4 gm/dL (11.6-15.3); Lymph # (Auto) 0.9 th/mm3 (1.0-4.8); Lymph % (Auto) 4.5 % (9.0-44.0); Mean Corpuscular HGB Conc 33.1 % (32.0-36.0); Mean Corpuscular Hemoglobin 26.5 pg (27.0-34.0); Mean Corpuscular Volume 80.1 fL (80.0-100.0); Mean Platelet Volume 7.7 fL (7.0-11.0); Mono # (Auto) 0.7 th/mm3 (0.0-0.9); Mono % (Auto) 3.6 % (0.0-8.0); Neut # (Auto) 18.3 th/mm3 (1.8-7.7); Neut % (Auto) 91.4 % (16.0-70.0); Platelet Count 317 th/mm3 (150-450); Red Blood Count 4.32 mil/mm3 (4.00-5.30); Red Cell Distribution Width 18.8 % (11.6-17.2)
[2018-04-02] MEDS: MethylPREDNISolone Sod Succinate Inj 40 MG/ML Vial IV.PUSH SCH (09:28)
[2018-04-02] MEDS: Insulin NovoLOG Aspart Correctional Sugar Inj SQ SCH ×3 (09:30→17:29)
[2018-04-02] MEDS: Tobramycin/Dexamethasone Opth Drops 5 ML Bottle EACH EYE SCH (09:36)
[2018-04-02 09:57] LABS: Calcium 8.3 mg/dL (8.5-10.1); Carbon Dioxide 22.6 meq/L (21.0-32.0)
[2018-04-02 10:06] LABS: Lymphocytes 2 % (9-44); Monocytes 3 % (0-8); Myelocytes 2 % (0-0); Platelet Estimate Normal (Normal); Platelet Morphology Normal (Normal)
--- NOTE | 2018-04-02 12:20 | P.PN ---
Subjective Interval history: awake and alert, up sitting on chair no complains of headaches, dizziness now does not feeling any fluid draining on her ear left ear with amplifier in place Physical Exam Vital signs: Vital Signs 04/01/18 16:00 04/01/18 20:00 04/02/18 00:00 Temperature 97.8 F 97.6 F 97.7 F Pulse Rate 74 68 72 Respiratory Rate 20 18 18 Blood Pressure 155/74 H 159/75 H 167/92 H Pulse Oximetry 98 98 96 04/02/18 04:00 04/02/18 07:51 04/02/18 08:00 Temperature 97.6 F 97.4 F L Pulse Rate 69 70 69 Respiratory Rate 18 20 Blood Pressure 147/84 H 174/84 H Pulse Oximetry 97 95 Intake & Output 04/01/18 04/02/18 04/02/18 18:59 06:59 18:59 Intake Total 2342.5 / 2342.5 2300 / 2300 Balance 2342.5 / 2342.5 2300 / 2300 Weight 82.7 kg Intake: IV 1562.5 / 1562.5 2300 / 2300 NS + KCl 40 mEq Inj 1,000 ML @ 1000 / 1000 84 mls/hr IV.CONT .[id number] [facility] Rx#:[id number] NS Inj 1,000 ML @ 100 mls/hr IV 1000 / 1000 1000 / 1000 .CONT .Q10H [facility] Rx#:[id number] Zyvox 600 mg Premix 300 ML @ 300 / 300 300 / 300 300 mls/hr IV.SIG Q12H [facility] Rx#: [id number] Vancomycin Inj 1,250 MG In NS 262.5 / 262.5 Inj 250 ML @ 250 mls/hr IV.SIG Q24H [facility] Rx#:[id number] Oral 780 / 780 Other: # Voids 5 Date of Last Bowel Movement 04/01/18 04/01/18 # Bowel Movements 1 2 Narrative: not in acute distress HEAD: Atraumatic. Normocephalic. No temporal or scalp tenderness. EYES: Pupils equal round and reactive. Scleral icterus. no tragal tenderness, canal no swelling, dry, otoscopy- - myringtoly tube in urban e AD- canal no erythema, no tragal tenderness, some bullae/fluid NECK: Trachea midline. Supple, nontender, no meningeal signs. CARDIOVASCULAR: HS audible. RESPIRATORY: Clear to auscultation bilaterally. GASTROINTESTINAL: Abdomen soft nontender. MUSCULOSKELETAL: Extremities without clubbing, cyanosis. NEUROLOGICAL: Alert oriented 3. Nonfocal. Psych cooperative skin- some erythema of the face, forearms, and back - IMPROved Results - Labs CBC & Chem 7: 04/02/18 09:06 04/02/18 09:06 Laboratory Results - last 24 hr 04/01/18 04/01/18 04/01/18 12:17 17:37 21:21 WBC RBC Hgb Hct MCV MCH MCHC RDW Plt Count MPV Prelim Diff (Auto) Neut % (Auto) Lymph % (Auto) [place] % (Auto) Eos % (Auto) Baso % (Auto) Neut # (Auto) Lymph # (Auto) [place] # (Auto) Eos # (Auto) Baso # (Auto) WBC Differential Seg Neuts % (Manual) Lymphocytes % (Manual) Monocytes % (Manual) Myelocytes % (Man) Abs Neuts (Manual) Differential Comment Platelet Estimate Platelet Morphology Sodium Potassium Chloride Carbon Dioxide Anion Gap BUN Creatinine Estimated GFR POC Glucose 170 H 215 H 237 H Random Glucose Calcium 04/02/18 04/02/18 04/02/18 08:01 09:06 09:06 WBC 20.0 H RBC 4.32 Hgb 11.4 L Hct 34.6 L MCV 80.1 MCH 26.5 L MCHC 33.1 RDW 18.8 H Plt Count 317 MPV 7.7 Prelim Diff (Auto) Slide review pending Neut % (Auto) 91.4 H Lymph % (Auto) 4.5 L [place] % (Auto) 3.6 Eos % (Auto) 0.1 Baso % (Auto) 0.4 Neut # (Auto) 18.3 H Lymph # (Auto) 0.9 L [place] # (Auto) 0.7 Eos # (Auto) 0.0 Baso # (Auto) 0.1 WBC Differential Manual diff final Seg Neuts % (Manual) 93 H Lymphocytes % (Manual) 2 L Monocytes % (Manual) 3 Myelocytes % (Man) 2 H Abs Neuts (Manual) 19.0 H Differential Comment . Platelet Estimate Normal Platelet Morphology Normal Sodium 143 Potassium 5.0 D Chloride 111 H Carbon Dioxide 22.6 Anion Gap 9 BUN 17 Creatinine 1.27 H Estimated GFR 50 L POC Glucose 233 H Random Glucose 182 H Calcium 8.3 L Microbiology 03/31/18 10:10 Blood - Peripheral Aerobic Blood Culture - Preliminary No growth in 2 days 03/31/18 10:10 Blood - Peripheral Anaerobic Blood Culture - Preliminary No growth in 2 days 03/31/18 10:15 Blood - Peripheral Aerobic Blood Culture - Preliminary No growth in 2 days 03/31/18 10:15 Blood - Peripheral Anaerobic Blood Culture - Preliminary No growth in 2 days 03/31/18 22:15 Ear - Right Gram Stain - Final Assessment and Plan - Plan 72 years old Otitis Externa possible media AD Mastoiditis bilaterally on CT H/o recurrent ear infections particularly right ear. H/o Right ear tube now removed. H/o Left ear myringotomy tube placement - sent here by ENT - ID ff- started on IV zyvox. Vancomycin DC due to HANNAH - Discontinue Vanco IV due to Acute renal failure at least till we sort out if this is acute or chronic or both as Vanco can be nephrotoxic -Monitor platelet cts , CBC, BMP, ff cultures - not cleared for PICC line due to leukocytosis Zyvox IV for now. If treatment needed beyond 2 weeks then zyvox will have to be changed as well. Zyvox would be a good option if treatment expected to be less than 2 weeks. Zyvox beyond 2 weeks the risk of neuropathy and BM toxicity increases. Leukocytosis - due to above + steroids Acute KI- creatinine trending down- improved - ff BMP - encoruage po -avoid nephrotoxins and follow BMP. History of hypertesnion - restart her Lopressor 50 mg bid on DC low BP on admission H/o Cosby-Stickler syndrome. - OP ff up with an assistance representative New Rash: likely drug induced possibly Clindamycin prior to admission as rash started before hospitalization. Pain on swallowing- no sores of the mouth, no oral ulcer - was started Solumedrol 40 mg q 12 - change to po x 2 days then DC Diabetes-elevated BS- due to steroids - this is tapered On PO meds as an outpt. -hold PO regimen. -insulin sliding scale. -Levemir 15 units HS. - adjust accordingly Speech therapy dd PPx: Heparin
[2018-04-02] MEDS ORDERED: Sod Chloride 0.9% Inj 1,000 ML IV.CONT SCH (12:22)
--- NOTE | 2018-04-02 13:39 | P.PNID ---
Subjective Remarks: is a 72-year-old AA female with a past medical history of chronic ear infections and diabetes who is presenting to the hospital with right ear pain and facial swelling. She says that she has had ear problems for the past 5 or 6 years. She said she had bilateral ear tubes placed and they removed the tube from her right ear but she still has one in the left ear. She says she has been following up with her ENT and she said that she had a positive test for MRSA. She says she was started on clindamycin. She has been experiencing right ear pain, right ear itching and facial swelling on the right side of her face. She also had a fall last night where she injured her right knee. She says she is having difficulty ambulating well secondary to the pain. She said she was dizzy prior to the fall. She says she has not been eating that much but she has been drinking plenty of fluids. She says she has minor pain in her left ear ID consulted for otitis media, otitis externa with MRSA non responsive to outpatient antibiotics. Antibiotics: Zyvox IV Lines: Lines ok Past Medical History: reviewed Allergies/Adverse Reactions: Allergies clindamycin Allergy (Severe, Verified 03/31/18 10:09) Hives Objective Vital Signs 04/01/18 16:00 04/01/18 20:00 04/02/18 00:00 Temperature 97.8 F 97.6 F 97.7 F Pulse Rate 74 68 72 Respiratory Rate 20 18 18 Blood Pressure 155/74 H 159/75 H 167/92 H Pulse Oximetry 98 98 96 04/02/18 04:00 04/02/18 07:51 04/02/18 08:00 Temperature 97.6 F 97.4 F L Pulse Rate 69 70 69 Respiratory Rate 18 20 Blood Pressure 147/84 H 174/84 H Pulse Oximetry 97 95 04/02/18 12:00 Temperature 97.8 F Pulse Rate 69 Respiratory Rate 18 Blood Pressure 173/81 H Pulse Oximetry 99 Intake & Output 04/01/18 04/02/18 04/02/18 18:59 06:59 18:59 Intake Total 2342.5 / 2342.5 2300 / 2300 500 / 500 Balance 2342.5 / 2342.5 2300 / 2300 500 / 500 Weight 82.7 kg Intake: IV 1562.5 / 1562.5 2300 / 2300 500 / 500 NS + KCl 40 mEq Inj 1,000 ML @ 1000 / 1000 500 / 500 84 mls/hr IV.CONT .[id number] GUANACO Rx#:[id number] NS Inj 1,000 ML @ 100 mls/hr IV 1000 / 1000 1000 / 1000 .CONT .Q10H GUANACO Rx#:[id number] Zyvox 600 mg Premix 300 ML @ 300 / 300 300 / 300 300 mls/hr IV.SIG Q12H GUANACO Rx#: [id number] Vancomycin Inj 1,250 MG In NS 262.5 / 262.5 Inj 250 ML @ 250 mls/hr IV.SIG Q24H GUANACO Rx#:[id number] Oral 780 / 780 Other: # Voids 5 Date of Last Bowel Movement 04/01/18 04/01/18 # Bowel Movements 1 2 03/31/18 10:10 Blood - Peripheral Aerobic Blood Culture - Preliminary No growth in 2 days 03/31/18 10:10 Blood - Peripheral Anaerobic Blood Culture - Preliminary No growth in 2 days 03/31/18 10:15 Blood - Peripheral Aerobic Blood Culture - Preliminary No growth in 2 days 03/31/18 10:15 Blood - Peripheral Anaerobic Blood Culture - Preliminary No growth in 2 days 03/31/18 22:15 Ear - Right Gram Stain - Final 03/31/18 22:15 Ear - Right Wound Culture - Pending Lab - Hematology Results 04/01/18 04/02/18 04:45 09:06 WBC 18.5 H 20.0 H RBC 4.22 4.32 Hgb 11.0 L 11.4 L Hct 33.8 L 34.6 L MCV 80.1 80.1 MCH 26.0 L 26.5 L MCHC 32.5 33.1 RDW 18.8 H 18.8 H Plt Count 317 317 MPV 7.7 7.7 Prelim Diff (Auto) Slide review pending Neut % (Auto) 90.2 H 91.4 H Lymph % (Auto) 6.1 L 4.5 L Greene % (Auto) 3.6 3.6 Eos % (Auto) 0.0 0.1 Baso % (Auto) 0.1 0.4 Neut # (Auto) 16.7 H 18.3 H Lymph # (Auto) 1.1 0.9 L Greene # (Auto) 0.7 0.7 Eos # (Auto) 0.0 0.0 Baso # (Auto) 0.0 0.1 WBC Differential . Manual diff final Seg Neuts % (Manual) 93 H Lymphocytes % (Manual) 2 L Monocytes % (Manual) 3 Myelocytes % (Man) 2 H Abs Neuts (Manual) 19.0 H Differential Comment Auto diff final . Platelet Estimate Normal Platelet Morphology Normal Lab - Chemistry Results 03/31/18 03/31/18 04/01/18 16:34 21:50 04:45 Sodium 142 Potassium 3.3 L Chloride 106 Carbon Dioxide 22.4 Anion Gap 14 BUN 20 H Creatinine 1.59 H Estimated GFR 39 L POC Glucose 177 H 240 H Random Glucose 169 H Calcium 8.1 L Total Bilirubin 0.9 AST 60 H ALT 44 Alkaline Phosphatase 126 H Total Protein 7.1 Albumin 2.8 L 04/01/18 04/01/18 04/01/18 08:42 12:17 17:37 Sodium Potassium Chloride Carbon Dioxide Anion Gap BUN Creatinine Estimated GFR POC Glucose 166 H 170 H 215 H Random Glucose Calcium Total Bilirubin AST ALT Alkaline Phosphatase Total Protein Albumin 04/01/18 04/02/18 04/02/18 21:21 08:01 09:06 Sodium 143 Potassium 5.0 D Chloride 111 H Carbon Dioxide 22.6 Anion Gap 9 BUN 17 Creatinine 1.27 H Estimated GFR 50 L POC Glucose 237 H 233 H Random Glucose 182 H Calcium 8.3 L Total Bilirubin AST ALT Alkaline Phosphatase Total Protein Albumin 04/02/18 12:31 Sodium Potassium Chloride Carbon Dioxide Anion Gap BUN Creatinine Estimated GFR POC Glucose 282 H Random Glucose Calcium Total Bilirubin AST ALT Alkaline Phosphatase Total Protein Albumin Imaging: ITS Impressions Head CT 03/31/18 10:19 CONCLUSION: 1. Complete opacification of the mastoid air cells bilaterally. 2. Near complete opacification of the paranasal sinuses bilaterally. 3. No evidence of hemorrhage or mass effect. 4. Atrophy and chronic small vessel ischemic change. . Hip X-Ray 03/31/18 11:40 CONCLUSION: Limited exam, negative Knee X-Ray 03/31/18 11:40 CONCLUSION: Degenerative changes, negative for fracture or pathological joint effusion. Physical Exam: GENERAL: Well-nourished well-developed, not in acute distress SKIN: Rash on her face, bilateral UE and abdomen despite being dark skinned. No rash on bilateral LE. HEAD: Atraumatic. Normocephalic. No temporal or scalp tenderness. EYES: Pupils equal round and reactive. Scleral icterus. No injection or drainage. No petechia ENT: Flattened nasal bridge with nasal twang. Bilateral ear with minimal discharge. NECK: Trachea midline. Supple, nontender, no meningeal signs. CARDIOVASCULAR: HS audible. RESPIRATORY: Clear to auscultation bilaterally. GASTROINTESTINAL: Abdomen soft nontender. MUSCULOSKELETAL: Extremities without clubbing, cyanosis. NEUROLOGICAL: Alert oriented 3. Nonfocal. Psych cooperative IV line sites ok. Assessment and Plan - Plan Otitis Externa possible media Mastoiditis bilaterally on CT H/o Cosby-Stickler syndrome. Has not seen an opthalmologist for few years. Addressed importance. H/o recurrent ear infections particularly right ear. H/o Right ear tube now removed. H/o Left ear tube placement Acute renal failure: baseline not known. Leucocytosis: likely infection related. New Rash: likely drug induced possibly Clindamycin prior to admission as rash started before hospitalization. Recs: Ok to discharge from ID standpoint only if Zyvox can be arranged and approved by [facility]. Please let patient know her copay for medications if any: Continue Zyvox 600 mg po bid for 2 weeks (cannot use Vanco IV due to ARF plus oral option available. Had reaction to Clindamycin and failed other oral antibiotics. Please have [facility] approve this for her. Follow up with PCP in 1 week to follow up clinically and platelets. Follow with ENT. Do not recommend continuing zyvox beyond 2 weeks as causes neuropathy and BM suppression. Atif Beramn: Cosby Stickler syndrome affects eye and patient has not seen Optagustin HENAO in many years. Pt son in room both patient and son made aware to follow up with Laquita HENAO. Spoke with RN at [facility] office where patient is seen by PCP. Her last Cr was 0.95 in November 2017. WBC high due to steroids clinically appears stable with no signs of worsening infection. In fact appears to be improving. Follow cultures Follow clinical course. covering for me and available prn for the weekend. atif So: Zyvox cannot be obtained till Thursday reportedly. Patient cannot be discharged on Vanco IV due to ARF. The other option is Daptomycin IV which is expensive and needs a picc and prior authorization as well.
--- NOTE | 2018-04-02 14:47 | P.DCO ---
- Home Health Nursing Order: Medical education, Signs/symptoms of disease process, Diabetic education - Case Management Consult Yes - Certification I have seen patient Jessenia Raza on 04/02/18. My clinical findings support the need for the requested home health care services because: Need for psychosocial assistance, Injectable medication education/administration I certify that my clinical findings support that this patient is homebound because: Need for psychosocial assistance
[2018-04-02 16:12] VITALS: BP 189/84; PULSE 67; RESP 20; TEMP 97.6; O2SAT 100
[2018-04-02] MEDS: Montelukast 10 MG Tablet PO SCH (17:29)
[2018-04-02] MEDS ORDERED: predniSONE 10 MG Tablet PO SCH (21:00)
== END 2018-04-02 17:30 | disposition home or self-care (01) ==
LOC: NEPC 09:43 → INTOOBSV 12:07 → NEDA 12:07 → N05 14:40
PROVIDERS: ADMIT Internal Medicine; ATTEND Internal Medicine